=== PATIENT | female | born 1965 | race Caucasian/White ===

== ENCOUNTER 2020-07-23 16:22 | Emergency (ER) | payer OTHER, SELFPAY ==
--- NOTE | ~2020-07-23 | XR_ITS ---
EXAMINATION: XR foot LT min 3V EXAM DATE: 07/23/2020 17:17 INDICATION: Initial encounter following injury, with pain of the left foot. Fell 2 days ago. TECHNIQUE: Left foot dorsoplantar, lateral and oblique projections obtained and reviewed. There is n o prior study for comparison. FINDINGS: There is a 5 x 10 mm bone fragment along the inferolateral aspect of the calcaneocuboid art iculation identified on 2 of the projections, appears not to be corticated. This could be an acute av ulsion fracture from one of these 2 bones. This finding has been indicated, marked on the examination for review, clinical correlation. 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 IMPRESSION: Probable avulsion fracture at the left calcaneocuboid joint. Reviewed, dictated and finalized at location A.
[2020-07-23 16:38] VITALS: BP 135/79; PULSE 68; RESP 16; TEMP 36.5; O2SAT 100
--- NOTE | 2020-07-23 16:59 | ED.LOWEXIN ---
HPI - Extremity Injury (Lower) General Chief Complaint: Extremity Injury, Lower Stated Complaint: left foot injury Time Seen by Provider: 07/23/20 17:23 Source: patient and RN notes reviewed Mode of arrival: ambulatory Limitations: no limitations History of Present Illness HPI Narrative: 55-year-old female presents concern for left foot injury. Reports on Thursday night after she received a Covid vaccine she had a syncopal episode and landed on her foot. She reports mid dorsal and pedal pain, bruising, swelling. Reports she has been elevating it, using ice and using Tylenol. Reports she has been using crutches to stay off her feet. She denies decreased sensation, strength, range of motion. MD complaint: foot injury Related Data Allergies Allergy/AdvReac Type Severity Reaction Status Date / Time No Known Allergies Allergy Verified 07/23/20 17:17 Review of Systems Review of Systems: Narrative: CONSTITUTIONAL: Denies malaise, chills, sweats, or fever SKIN: Denies lacerations, abrasions, redness, warmth MUSCULOSKELETAL: Reports left foot pain, bruising, swelling NEUROLOGIC: Denies numbness, weakness All systems reviewed & are unremarkable except as noted in HPI and below PMFSH Comments At time of signature, agree with nursing past medical, surgical, social and family history. There is no relevant family history pertinent to the presenting complaint Exam Narrative: Exam Narrative: GENERAL: Well-appearing, well-nourished, and in no acute distress. HEAD: Normocephalic, atraumatic. EYES: PERRLA, conjunctivae clear NECK: Supple. CHEST: Speaks in full sentences. No respiratory distress. HEART: Regular rate and rhythm. Normal and equal peripheral pulses. EXTREMITIES left foot, digits have normal strength and sensation, normal range of motion. Moderate circumferential edema and ecchymosis. 5/5 strength with ankle and digit flexion and extension. Normal sensation with sensitivity to light touch and pain. Generalized tenderness. No open wounds, no skin tenting, no devitalized tissue or atrophy, no trophic changes, no obvious deformity, alignment normal, nearby joints and structures intact. Distal pulses palpable and equal bilaterally, skin warm, dry, pink. Capillary refill less than 3 seconds. SKIN: Warm, dry, no rash. NEURO: Alert and oriented x3. PSYCH: Normal mood and affect Course Course Emergency Course: Patient is aware of diagnosis, understands and agrees to treatment plan. Anticipatory guidance given. Patient agrees to follow-up as directed and is aware of reasons to seek care at the emergency department. Portions of this record may have been created with voice recognition software Vital Signs Vital signs: Vital Signs Temperature 97.7 F 07/23/20 16:38 Pulse Rate 68 07/23/20 16:38 Respiratory Rate 16 07/23/20 16:38 Blood Pressure 135/79 07/23/20 16:38 Pulse Oximetry 100 07/23/20 16:38 Temperature 97.7 F 07/23/20 16:38 Pulse Rate 68 07/23/20 16:38 Respiratory Rate 16 07/23/20 16:38 Blood Pressure 135/79 07/23/20 16:38 Pulse Oximetry 100 07/23/20 16:38 Reviewed. MDM - Extremity Injury (Lower) MDM Narrative Medical decision making narrative: Patients injury and pain is consistent with musculoskeletal etiology. No signs of neurological or vascular compromise on exam. Compartments and tissues are soft without signs of compartment syndrome. Pain is felt appropriate for further evaluation on an outpatient basis. Imaging Data My impression: Images reviewed, interpreted by radiologist, agree, see report. Radiologist's impression: EXAMINATION: XR foot LT min 3V EXAM DATE: 07/23/2020 17:17 INDICATION: Initial encounter following injury, with pain of the left foot. Fell 2 days ago. TECHNIQUE: Left foot dorsoplantar, lateral and oblique projections obtained and reviewed. There is no prior study for comparison. FINDINGS: There is a 5 x 10 mm bone fragment along the inferolateral aspect of
== END 2020-07-23 17:45 | disposition home or self-care (01) ==
PROVIDERS: Emergency Provider Nurse Practitioner
DX: S92.212A Displaced fracture of cuboid bone of left foot, initial encounter for closed fracture (principal); W19.XXXA Unspecified fall, initial encounter
CPT/HCPCS: 73630; 99204; G0463